=== PATIENT | female | born 1985 | race Caucasian/White ===

== ENCOUNTER 2017-03-17 11:07 | Emergency (ER) | payer SELFPAY ==
[~2017-03-17 11:07] MED LIST: ABILIFY; ASMANEX0; ASTELIN137 MCG; CIPRO500 M2 PO; CLINDAMYCIN HC300 M2 PO; COMPAZINE10 MG PO; COUMADIN; COUMADIN5 MG PO; CYMBALTA60 MG; DARVOCET-N 1001 TAB; HYDROCODON-ACE1 EA16 PO; KETEK400 MG; NORCO 5-325 TA1 EACH PO; NORCO 5/325 TAB1 TAB PO; PEN-VEE K500 MG PO; PERCOCET 5-3251 EACH PO; PROMETHAZINE HC25 M3 PO; PROVENTIL17 GM; SEROPHENE50 MG; SEROQUEL50 M1 PO; TRILEPTAL150 M2 PO; TYLENOL PM EX-S1 TAB; VICODIN 5/500 T1 TAB PO; WARFARIN SODIUM5 MG; WARFARIN SODIUM5 MG PO; ZITHROMAX250MG Z-PAK PO
[2017-03-17] MEDS ORDERED: KLONOPIN2 M1 PO (11:12)
[2017-03-17] MEDS ORDERED: LAMICTAL100 M2 PO (11:13)
[2017-03-17] MEDS ORDERED: PROPRANOLOL HCL10 M1 PO (11:13)
[2017-03-17] MEDS ORDERED: COUMADIN3 M1 PO (11:13)
[2017-03-17] MEDS ORDERED: REQUIP1 M1 (11:13)
[2017-03-17] MEDS ORDERED: MELATONIN10 M6 PO (11:14)
[2017-03-17] MEDS ORDERED: MULTIVITAMINS1 EACH PO (11:14)
[2017-03-17] MEDS ORDERED: AMITRIPTYLINE H50 M1 PO (11:19)
[2017-03-17] MEDS ORDERED: ULTRAM50 M1 PO (11:21)
[2017-03-17 12:14] LABS: INR 2.3 INR (0.9-1.1); PROTHROMBIN TIME 26.9 SECONDS (9.0-13.6)
[2017-03-17] MEDS ORDERED: PROAIR HFA8.5 GM INH (12:27)
[2017-07-28] MEDS ORDERED: REMERON15 M1 PO (19:08)
[2017-07-28] MEDS ORDERED: NORCO 5-325 TA1 EACH PO (22:39)
[2017-07-28] MEDS ORDERED: ZOFRAN ODT4 MG PO (22:39)
== END 2017-03-17 12:28 ==
LOC: EDMED 11:07
PROVIDERS: Emergency Medicine
DX: M79.605 Pain in left leg (principal); G89.29 Other chronic pain; Z86.718 Personal history of other venous thrombosis and embolism; Z86.711 Personal history of pulmonary embolism; J45.909 Unspecified asthma, uncomplicated; F31.9 Bipolar disorder, unspecified; F41.9 Anxiety disorder, unspecified; Z87.891 Personal history of nicotine dependence; Z79.01 Long term (current) use of anticoagulants; Z79.51 Long term (current) use of inhaled steroids; Z79.899 Other long term (current) drug therapy